=== PATIENT | male | born 1980 | race African-American/Black ===

== ENCOUNTER 2018-10-25 04:10 | Emergency (ER) | payer SELFPAY ==
[~2018-10-25] VITALS: Ht 175.3 cm; Wt 111.1 kg
--- NOTE | 2018-10-25 04:26 | Emergency Room Report ---
History of Present Illness General Chief Complaint: To Be Triaged Source: Patient Present Illness [facility] This is a 38-year-old male who is ambidextrous. He presents with chief complaint of right shoulder injury. He said that he try to break down the door running into it with his shoulder. This occurred about an hour ago. Since then he complained of right shoulder pain. Worse with movement. No loss of consciousness. Denies any other complaint. Pain is 9 out of 10. Allergies: Coded Allergies: No Known Allergies (Unverified , 10/25/18) Patient History Past Medical History: see triage record, old chart reviewed Past Surgical History: none Pertinent Family History: none Social History: Denies: smoking Immunizations: other Reviewed Nursing Documentation: PMH: Agreed; PSxH: Agreed Review of Systems Eye: Denies: eye pain, blurred vision ENT: Denies: ear pain, nose congestion, throat swelling Respiratory: Denies: cough, shortness of breath Cardiovascular: Denies: chest pain, palpitations Gastrointestinal: Denies: abdominal pain, diarrhea, nausea, vomiting Musculoskeletal: Reports: joint pain; Denies: back pain Skin: Denies: rash Neurological: Denies: headache, numbness Endocrine: Denies: increased thirst, increased urine Hematologic/Lymphatic: Denies: easy bruising All Other Systems: negative except mentioned in HPI Physical Exam Vitals unremarkable Sp02 EP Interpretation: reviewed, normal General Appearance: well appearing, no apparent distress, alert Head: normocephalic, atraumatic Eyes: bilateral eye PERRL, bilateral eye EOMI ENT: hearing grossly normal, normal pharynx Neck: full range of motion, supple, no meningismus Respiratory: chest non-tender, lungs clear, normal breath sounds Cardiovascular #1: regular rate, rhythm, no murmur Gastrointestinal: normal bowel sounds, non tender, no mass, no organomegaly, no bruit, non-distended Musculoskeletal: back normal, gait/station normal, other - Right shoulder: He has tenderness over the distal clavicle and acromial process. No deformity. Psychiatric: mood/affect normal Procedures Splinting Splinting : Consent: Verbal Location: Right arm Pre-Made Type: sling Pre-Proc Neuro Vasc Exam: normal Post-Proc Neuro Vasc Exam: normal Patient Tolerated: Well Complications: None Medical Decision Making Diagnostic Impression: Primary Impression: Right shoulder injury Qualified Codes: S49.91XA - Unspecified injury of right shoulder and upper arm , initial encounter ER Course This patient presents with a right shoulder injury. No fracture or dislocation. He may have ligament injury or rotator cuff injury. Will discharge home. May need MRI if continue with pain. Other X-Ray Diagnostic Results Other X-Ray Diagnostic Results : X-Ray ordered: Right shoulder x-rays # of Views/Limited Vs Complete: Complete Indication: Pain EP Interpretation: Yes Interpretation: no dislocation, no soft tissue swelling, no fractures Impression: No acute disease Electronically Signed by: Jerrod Jade MD Status: improved Disposition: HOME, SELF-CARE Condition: Stable Scripts Ibuprofen* (MOTRIN*) 600 Mg Tablet 600 MG ORAL THREE TIMES A DAY, #30 TAB 0 Refills Prov: Jerrod Jade MD 10/25/18 Hydrocodone/Acetaminophen 5-325* (HYDROCODONE/ACETAMINOPHEN 5-325*) 1 Each Tablet 1 TAB ORAL Q6H PRN for For Pain, #15 TAB 0 Refills Prov: Jerrod Jade MD 10/25/18 Additional Instructions: Follow-up with your doctor in 7 days. If continue with pain, may need MRI. Return if worse. Jerrod Jade MD Oct 25, 2018 04:26
[2018-10-25] MEDS ORDERED: HYDROcodone/Acetamin 5/325 tab ORAL ONE (04:30)
[2018-10-25 04:32] VITALS: BP 141/106
--- NOTE | 2018-10-25 04:33 | NUR ---
ER Nurse Note: Pt walked in from home c/o RT shoulder pain d/t running into a door around 0245. Pt stated 10/ pain. Unable to move RT shoulder. Cap refil less than 3 secs. Will continue to montior.
[2018-10-25] MEDS ORDERED: IBUPROFEN600 MG ORAL (05:11)
[2018-10-25] MEDS ORDERED: HYDROCODON-ACE1 EA15 ORAL (05:11)
[2018-10-25 05:16] VITALS: BP 141/106
--- NOTE | 2018-10-25 05:16 | NUR ---
ER Nurse Note: Pt seen, treated, medically cleared for discharge by ERMD. Discharge instuctions and prescriptions given with repeat verbalization by pt. Emphasized to follow up with primay care provider; take whole course of medication. Explained each medication. All orders completed per ERMD orders. Pt a&ox4, VSS, no signs of distress. ID band removed. Sling placed on RT shoulder. RICE taught. Ice packs provided. All questions answered per pt's questions. Pt left with all belongings, left with own transportation.
--- NOTE | 2018-10-25 10:51 | Diagnostic Imaging Report ---
Indication: Trauma, pain in right shoulder Technique: 3 views of the right shoulder Comparison: none Findings: There is evidence of calcific tendinosis of the rotator cuff. No acute fractures. No dislocations. Joint spaces are preserved Impression: Negative
== END 2018-10-25 05:16 | disposition home or self-care (01) ==
LOC: EMR 04:34
DX: S49.91XA Unspecified injury of right shoulder and upper arm, initial encounter (principal); W22.09XA Striking against other stationary object, initial encounter; Y92.9 Unspecified place or not applicable
CPT/HCPCS: 99283

== ENCOUNTER 2019-01-02 15:08 | Emergency (ER) | payer SELFPAY ==
[~2019-01-02] VITALS: Ht 172.7 cm; Wt 113.4 kg
[~2019-01-02 15:08] MED LIST: HYDROCODON-ACE1 EA15 ORAL; IBUPROFEN600 MG ORAL
[2019-01-02] MEDS ORDERED: NKM (15:19)
[2019-01-02 15:20] VITALS: BP 107/74
--- NOTE | 2019-01-02 15:20 | NUR ---
ED Nurse Note: pt walked in to ED due to left 1st digit finger injury during wrestling with brother. no deformity noted. no limited ROM noted. cap refill <3 sec. AAO x4. respirations even and non-labored noted. will wait for the further order.
--- NOTE | 2019-01-02 16:32 | Emergency Room Report ---
History of Present Illness General Chief Complaint: Upper Extremity Injury Source: Patient Present Illness HPI 38-year-old male with no symptom past medical history here complaining of pain over the left thumb after the thumb being pulled during wrestling with his brother today. Patient rating the pain 5 out of 10 without radiation. Has full range of motion and no motor or sensory deficits noted. Denies tingling and numbness. Has not taken medication for pain. Denies all other injuries, chest pain, shortness of breath, palpitation, no other associated symptoms. Allergies: Coded Allergies: No Known Allergies (Unverified , 10/25/18) Patient History Past Medical History: see triage record Past Surgical History: unable to obtain Pertinent Family History: none Immunizations: UTD Reviewed Nursing Documentation: PMH: Agreed; PSxH: Agreed Nursing Documentation-PMH Past Medical History: No Stated History Review of Systems All Other Systems: negative except mentioned in HPI Physical Exam Vital Signs Date Time Temp Pulse Resp B/P (MAP) Pulse Ox O2 Delivery O2 Flow Rate FiO2 01/02/19 15:15 98.2 85 16 107/74 (85) 94 Room Air Sp02 EP Interpretation: reviewed, normal General Appearance: no apparent distress, alert, GCS 15, non-toxic Head: normocephalic, atraumatic Eyes: bilateral eye normal inspection, bilateral eye PERRL ENT: hearing grossly normal, normal pharynx, no angioedema, normal voice Neck: full range of motion, supple, supple/symm/no masses Respiratory: chest non-tender, lungs clear, normal breath sounds, no rhonchi, no wheezing, speaking full sentences Cardiovascular #1: regular rate, rhythm, no edema, no murmur Cardiovascular #2: 2+ radial (R), 2+ radial (L) Gastrointestinal: normal bowel sounds, non tender, soft, non-distended, no guarding, no rebound Rectal: deferred Genitourinary: no CVA tenderness Musculoskeletal: back normal, digits/nails normal, gait/station normal, normal range of motion, non-tender, no calf tenderness Neurologic: alert, oriented x3, responsive, motor strength/tone normal, sensory intact, speech normal Psychiatric: judgement/insight normal, memory normal, mood/affect normal, no suicidal/homicidal ideation Skin: no rash Lymphatic: no adenopathy Medical Decision Making PA Attestation All diagnoses and treatment plans were reviewed and discussed with my supervising physician Dr. Rebollar Diagnostic Impression: Primary Impression: Thumb sprain ER Course 38-year-old male with no symptom past medical history here complaining of pain over the left thumb after the thumb being pulled during wrestling with his brother today. Patient rating the pain 5 out of 10 without radiation. Has full range of motion and no motor or sensory deficits noted. Denies tingling and numbness. Has not taken medication for pain. Denies all other injuries, chest pain, shortness of breath, palpitation, no other associated symptoms. Ddx considered but are not limited to: Thumb sprain versus thumb fracture versus thumb strain Vital signs: are WNL, pt. is afebrile H&PE are most consistent with : Thumb sprain ORDERS: Hand x-ray, ibuprofen ED INTERVENTIONS: Symptomatic immobilization via middle finger splint DISCHARGE: At this time pt. is stable for d/c to home. Will provide printed patient care instructions, and any necessary prescriptions. Care plan and follow up instructions have been discussed with the patient prior to discharge. Patient to follow-up with primary care provider if needed to be referred to financial assistance specialist and if worsening symptoms return to the emergency room Other X-Ray Diagnostic Results Other X-Ray Diagnostic Results : X-Ray ordered: Finger # of Views/Limited Vs Complete: 3 View Indication: Pain EP Interpretation: Yes PA Xray: Interpretation reviewed, by supervising MD, and agrees with findings. Interpretation: no dislocation, no soft tissue swelling, no fractures Impression: No acute disease Electronically Signed by: Cleveland Duffy PA-C Last Vital Signs Date Time Temp Pulse Resp B/P (MAP) Pulse Ox O2 Delivery O2 Flow Rate FiO2 01/02/19 15:20 98.2 85 16 107/74 94 Room Air Disposition: HOME, SELF-CARE Condition: Stable Scripts Ibuprofen (Ibu) 800 Mg Tablet 800 MG PO BID, #20 TAB Prov: Cleveland Gallo 01/02/19 Patient Instructions: Thumb Sprain Additional Instructions: Take medication as directed, follow-up with a primary care provider for referral to financial assistance specialist, if worsening symptoms return to the emergency room. Cleveland Gallo Jan 02, 2019 16:32
[2019-01-02] MEDS ORDERED: IBU800 MG PO (16:33)
--- NOTE | 2019-01-02 16:42 | NUR ---
ER DISCHARGE NOTE: Patient is cleared to be discharged per ERMD, pt is aox4, on room air, with stable vital signs. pt was given dc and prescription instructions, pt was able to verbalize understanding, pt id band removed without complications. pt is able to ambulate with steady gait. pt took all belongings.
--- NOTE | 2019-01-02 16:50 | Diagnostic Imaging Report ---
Indication: Pain, trauma Technique: 3 views of the left thumb Comparison: none Findings: No acute fractures. No dislocations. Joint spaces are preserved Impression: Negative
== END 2019-01-02 16:40 | disposition home or self-care (01) ==
LOC: EMR 15:42
DX: S63.602A Unspecified sprain of left thumb, initial encounter (principal); X50.9XXA Other and unspecified overexertion or strenuous movements or postures, initial encounter; Y93.72 Activity, wrestling; Y92.9 Unspecified place or not applicable
CPT/HCPCS: 29130; 99283